=== PATIENT | male | born 1980 | race Caucasian/White ===

== ENCOUNTER 2016-04-13 15:55 | Emergency (ER) | payer BC ==
--- NOTE | 2016-04-13 19:49 | ED NURSING NOTES ---
Clinical Report - Nurses [facility] [address] [place] [address] 04/13/2016 15:58 Patient: YIMI BHAT TRIAGE Triage time 17:10. Acuity: LEVEL 3. Chief Complaint: SORE THROAT and (swelling post tonsillectomy). 17:20 04/13/16. Alert. No acute distress. SEPSIS SCREEN: Sepsis Screen. Negative (no infection suspected/documented). Heart rate greater than 90. Respiratory rate not greater than 20. CHEY COMA SCORE: Chey Coma Scale: 15- eyes open spontaneously (4); best verbal response- oriented x 4 (5); best motor response- obeys commands (6). --17:20 Kenny Conn R.N. 17:12 04/13/16. BP: 118/81. HR: 125. RR: 16. O2 saturation: 99% on room air. Temp: 99 F (oral). Pain level now 5/10. --17:20 Kenny Conn R.N. Triage time 17:38. Chief Complaint: SORE THROAT and (tonsils removed am, still having pain and throat swelling. "When dtries to swallow, the water comes back up throuigh the nares."). --17:44 Amarilis Santana R.N. Weight: 99.7 kg stated. Height/Length: 72 inches Per Patient. BMI: 29.8. --17:14 Kenny Conn R.N. Medications Fluticasone Propionate Nasal. --17:17 Kenny Conn R.N. Sertraline HCl Oral 25 mg, daily. --17:18 Amarilis Santana R.N. Ranitidine HCl Oral 150 mg, 2x a day. --17:18 Amarilis Santana R.N. ALPRAZolam Oral 0.5 mg, 2x a day. --17:18 Amarilis Santana R.N. OxyCODONE HCl Oral 5 mg, as needed. --17:18 Amarilis Santana R.N. Acetaminophen Oral. --17:18 Kenny Conn R.N. The following entry was struck and corrected by Amarilis Santana R.N., 17:43 (04/13/16) Reason for correction - other(correction). <<STRICKEN ENTRY-- Sertraline HCl Oral. --17:18 Kenny Conn R.N. --END STRIKE>> The following entry was struck and corrected by Amarilis Santana R.N., 17:43 (04/13/16) Reason for correction - other(correction). <<STRICKEN ENTRY-- Ranitidine HCl Oral. --17:18 Kenny Conn R.N. --END STRIKE>> The following entry was struck and corrected by Amarilis Santana R.N., 17:43 (04/13/16) Reason for correction - other(correction). <<STRICKEN ENTRY-- OxyCODONE HCl Oral. --17:18 Kenny Conn R.N. --END STRIKE>> The following entry was struck and corrected by Amarilis Santana R.N., 17:42 (04/13/16) Reason for correction - other(correction). <<STRICKEN ENTRY-- ALPRAZolam Oral. --17:18 Kenny Conn R.N. --END STRIKE>>. Allergies Hydrocodone. --17:18 Kenny Conn R.N. Medication/allergy information source: the patient. --17:20 Kenny Conn R.N. History Historian: patient. Primary physician (blaze). ( tonsillectomy , hasn't been able to swallow or intake liquids/food since yesterday. C/O increased swelling and pain when attempting to swallow. No airway compromise. States he has only been able to crush up 1 percocet in pudding to swallow.). This started yesterday. Treatment WHOLESALER: Applied ice. (percocet). SOCIAL HX: Former smoker, end date 2013. Occasional alcohol use. No drug use. ABUSE ASSESSMENT: Abuse assessment: The patient was asked "Do you feel safe in your home?". No report of abuse. FALL RISK ASSESSMENT: Fall risk assessment completed. No fall risk identified. NUTRITIONAL RISK ASSESSMENT: The nutritional risk assessment revealed no deficiencies. FUNCTIONAL ASSESSMENT: Functional assessment: no impairments noted. LEARNING NEEDS ASSESSMENT: The learning needs assessment revealed no barriers. SKIN INTEGRITY ASSESSMENT: Skin integrity risk assessment completed. No skin integrity risk identified. --17:20 Kenny Conn R.N. Arrived by private vehicle. Historian: patient and family. Accompanied by family. Primary physician (blaze). This started yesterday. Onset. (started to get sore, then get worse.). ( "Feels like someone squeezing the throat."). Treatment WHOLESALER: (1/2 percocet in applesauce 2 hrs ago.). --17:44 Amarilis Santana R.N. PROBLEMS: Gastroesophageal Reflux Disease. Seasonal allergies. Anxiety Reaction. --17:19 Kenny Conn R.N. ADDITIONAL SURGERIES: Tonsillectomy. Vasectomy. --17:19 Kenny Conn R.N. Interventions ID band on patient. To treatment room. --17:20 Kenny Conn R.N. To waiting room. --17:20 Kenny Conn R.N. PHYSICAL ASSESSMENT Ambulatory to room. Patient gowned. GENERAL / NEURO / PSYCH: Alert. Oriented X 4. Appears in pain and anxious. HEENT: Trouble handling secretions. Muffled voice. Mucous membranes are pink. RESPIRATORY: Respirations not labored. CVS: Capillary refill less than 2 seconds. SKIN: Skin is warm and dry. Normal skin turgor. --17:45 Amarilis Santana R.N. NURSING PROGRESS NOTES Oxygen administered. Patient gowned. Head of bed elevated. Two patient identifiers checked. Call light placed in reach. Side rails up x 2. Bed placed in lowest position. Brakes of bed on. Patient ready for evaluation. --17:45 Amarilis Santana R.N. 18:20 04/13/2016 Site #1 started via IV in the right antecubital space with an 20g angiocath, with aseptic technique and good blood return; one attempt. Saline lock flushed with saline. --18:35 Amarilis Santana R.N. 18:20 04/13/2016 Started bag #1 1000 mL IV Fluids IV NS (Saline); at 1000 mL/hr over 1 hour(s) via site #1 via IV pump. Allergies verified and confirmed 5 rights. IV patency established. IV site checked: no pain, redness, or swelling. IV flushed thoroughly pre- and post-medication administration. --18:35 Amarilis Santana R.N. 18:21 04/13/2016 Zofran (Ondansetron HCl) IVP 4 mg given. via site #1. Allergies verified and confirmed 5 rights. IV patency established. IV site checked: no pain, redness, or swelling. IV flushed thoroughly pre- and post-medication administration. IVP given by RN. --18:36 Amarilis Santana R.N. 18:27 04/13/2016 Dilaudid (HYDROmorphone HCl PF) IVP 0.5 mg given over 1 minute(s) via site #1. Allergies verified, confirmed 5 rights and sedative warning given to the patient. IV patency established. IV site checked: no pain, redness, or swelling. IV flushed thoroughly pre- and post-medication administration. IVP given by RN. --18:37 Amarilis Santana R.N. 18:35 04/13/2016 Decadron IVP 10 mg given over 1 minute(s) via site #1. Allergies verified and confirmed 5 rights. IV patency established. IV site checked: no pain, redness, or swelling. IV flushed thoroughly pre- and post-medication administration. IVP given by RN. --18:39 Amarilis Santana R.N. 20:04/13/2016 Zofran IVP Response: no adverse reaction symptoms have improved the patient feels better. --20:09 Alfredo Saavedra R.N. 20:04/13/2016 Dilaudid IVP Response: no adverse reaction symptoms have improved the patient feels better. --20:09 Alfredo Saavedra R.N. 20:04/13/2016 Decadron IVP Response: no adverse reaction symptoms have improved the patient feels better. --20:09 Alfredo Saavedra R.N. 20:09 04/13/2016 IV Fluids IV NS Discontinued: bag #1 completed upon discharge. Total amount infused: 1000 mL. IV patency established. IV site checked: no pain, redness, or swelling. IV flushed thoroughly. --20:09 Alfredo Saavedra R.N. DISPOSITION / DISCHARGE Departure time: 20:08. Condition at departure: stable. The goals identified in the patient's plan of care were met. No learning barriers present. Discharge instructions provided and reviewed with the patient. Reviewed medication(s) side effects, precautions, dosing and course information. Prescription(s) given to the patient (Yimi verbalizes importance of not driving and/or operating heavy machinery while taking prescribed narcotics. He verbalizes safe, proper use of prescribed med for optimal pain management at home.). Patient verbalized understanding. Written instructions provided in Canadian. ( Yimi verbalizes understanding of all d/c instructions including need for f/u with ENT. He has no questions and voices no concerns at this time.). The patient was discharged by the physician. He was discharged home and accompanied by spouse. He left the Emergency Department ambulatory and via private vehicle. Spouse driving. CHEY COMA SCORE: Grant Coma Scale: 15- eyes open spontaneously (4); best verbal response- oriented x 4 (5); best motor response- obeys commands (6). --20:08 Alfredo Saavedra R.N. 20:05 04/13/16. BP: 124/79 (regular adult cuff) taken on the left arm, via an automated monitor, while lying. HR: 100 (normal rate). RR: 16 (regular, unlabored and normal). O2 saturation: 97% on room air. Temp: 99.4 F (oral). Pain level now: 05/10. --20:08 Alfredo Saavedra R.N. 20:08 04/13/2016 Site #1 removed upon discharge. Catheter intact. Bandaid applied (Bleeding controlled.). --20:08 Alfredo Saavedra R.N. Locked/Released at 04/13/2016 20:09 by Alfredo Saavedra R.N.
--- NOTE | 2016-04-13 19:49 | ED ORDER SUMMARY ---
..... Patient: YIMI BHAT OrderSheet [facility] VisitID: [id number] [address] [place] [address] 36y, M Registration Date/Time: 04/13/2016 ORDER SHEET Weight: 99.7 kg (stated) Allergies: Hydrocodone GENERAL ORDERS: MEDICATION ORDERS: IV FLUIDS: IV NS : initial bolus none -, then 1000 mL/hr for 1h (NOW); Urgent (17:49 04/13/2016 Arnold CHAVES) (Ack 18:04 SRoberts R.N.) (18:35 SRoberts R.N.) Decadron IV 10 mg (NOW) (17:53 04/13/2016 Arnold CHAVES) (Ack 18:04 SRoberts R.N.) (18:39 SRoberts R.N.) Dilaudid IV 0.5 mg (HIGH ALERT MEDICATION) (17:53 04/13/2016 Arnold CHAVES) (Ack 18:04 SRoberts R.N.) (18:37 SRoberts R.N.) Zofran IV 4 mg (NOW) (17:53 04/13/2016 Arnold CHAVES) (Ack 18:04 SRoberts R.N.) (18:36 SRoberts R.N.) ORDER SHEET NOTES: [Electronically signed by Alfredo Saavedra R.N. (20:09 04/13/2016)] [Electronically signed by Griffin Salinas MD (14:46 04/15/2016)] [Electronically locked/signed by Alfredo Saavedra R.N. (20:09 04/13/2016)]
--- NOTE | 2016-04-13 19:49 | ED CLINICAL REPORT ---
Clinical Report - Physicians/Mid Levels [facility] [address] [place] [address] 04/13/2016 15:58 Patient: YIMI BHAT Time Seen: 17:23. Arrived- By private vehicle. Historian- patient. HISTORY OF PRESENT ILLNESS Chief Complaint: CAN'T SWOLLOW and SP TONSILLECTOMY. This started yesterday Yimi is POD 2 following a tonsillectomy. He cannot drink fluids nor take his pain tablets. and is still present. It has been constant. (to severe). Pain described as moderate. The patient has had a sore throat. No toothache, swollen jaw or face, jaw pain or facial pain. Similar symptoms previously: None. Recent medical care: The patient was seen recently at another facility and hospitalized. ( For tonsillectomy - Dr Castillo). REVIEW OF SYSTEMS No fever, cough, difficulty breathing, chest pain or abdominal pain. PAST HISTORY Janae Kaur. Ops: TA Illness: none. Medications: Acetaminophen Oral. OxyCODONE HCl Oral 5 mg, as needed. ALPRAZolam Oral 0.5 mg, 2x a day. Ranitidine HCl Oral 150 mg, 2x a day. Sertraline HCl Oral 25 mg, daily. Fluticasone Propionate Nasal. Allergies: Hydrocodone. SOCIAL HISTORY The patient lives with spouse. ADDITIONAL NOTES The nursing notes have been reviewed. PHYSICAL EXAM Vital Signs: 04/13/2016 20:05 BP: 124/79. HR: 100. RR: 16. O2 saturation: 97%. Temp: 99.4 F. Pain level now: 05/10. 04/13/2016 17:12 BP: 118/81. HR: 125. RR: 16. O2 saturation: 99%. Temp: 99 F. Appearance: Alert. Patient in moderate distress. Head: Normal external inspection. ENT: (Healing tonsil beds without undue swelling). Neck: (No deep space masses). CVS: Heart sounds normal. Respiratory: Breath sounds normal. Abdomen: Nontender. PROGRESS AND PROCEDURES Course of Care: Pt is given 1 L of NS and Dilaudid plus Zofran plus Decatron. He feels better. Disposition: Discharged. Condition: improved. CLINICAL IMPRESSION SP TONSILLECTOMY. INSTRUCTIONS (LOTS OF LIQUIDS LIQUID PAIN MEDICATION WE GAVE YOU DECADRON A STEROID WE GAVE YOU ONE LITER OF SALINE CALL YOUR ENT DR ON FRIDAY FOR A PROGRESS REPORT RECHECK TOMORROW IF STILL NOT ABLE TO SWALLOW MEDS AND FLUIDS.). Prescription Medications: OXYCODONE LIQUID 5 MG/5 ML # 10 DOSES 5 ML Q 4 HRS PRN PAIN IF THERE IS A FORMULATION WITH 325 MG OF ACETAMENOPHEN PER 5 ML IN ADDITION TO THE OXYCODONE, THAT YOU BE PREFERABLE. Understanding of the discharge instructions verbalized by patient and family. (Electronically signed by Griffin Salinas MD 04/15/2016 14:46)
--- NOTE | 2016-04-13 19:49 | ED ORDER SUMMARY ---
..... Patient: YIMI BHAT OrderSheet [facility] VisitID: [id number] [address] [place] [address] 36y, M Registration Date/Time: 04/13/2016 ORDER SHEET Weight: 99.7 kg (stated) Allergies: Hydrocodone GENERAL ORDERS: MEDICATION ORDERS: IV FLUIDS: IV NS : initial bolus none -, then 1000 mL/hr for 1h (NOW); Urgent (17:49 04/13/2016 Arnold CHAVES) (Ack 18:04 SRoberts R.N.) (18:35 SRoberts R.N.) Decadron IV 10 mg (NOW) (17:53 04/13/2016 Arnold CHAVES) (Ack 18:04 SRoberts R.N.) (18:39 SRoberts R.N.) Dilaudid IV 0.5 mg (HIGH ALERT MEDICATION) (17:53 04/13/2016 Arnold CHAVES) (Ack 18:04 SRoberts R.N.) (18:37 SRoberts R.N.) Zofran IV 4 mg (NOW) (17:53 04/13/2016 Arnold CHAVES) (Ack 18:04 SRoberts R.N.) (18:36 SRoberts R.N.) ORDER SHEET NOTES: [Electronically signed by Alfredo Saavedra R.N. (20:09 04/13/2016)] [Electronically signed by Griffin Salinas MD (14:46 04/15/2016)] [Electronically locked/signed by Alfredo Saavedra R.N. (20:09 04/13/2016)]
--- NOTE | 2016-04-13 19:49 | ED CLINICAL REPORT ---
Clinical Report - Physicians/Mid Levels [facility] [address] [address] 04/13/2016 15:58 Patient: YIMI BHAT Time Seen: 17:23. Arrived- By private vehicle. Historian- patient. HISTORY OF PRESENT ILLNESS Chief Complaint: CAN'T SWOLLOW and SP TONSILLECTOMY. This started yesterday Yimi is POD 2 following a tonsillectomy. He cannot drink fluids nor take his pain tablets. and is still present. It has been constant. (to severe). Pain described as moderate. The patient has had a sore throat. No toothache, swollen jaw or face, jaw pain or facial pain. Similar symptoms previously: None. Recent medical care: The patient was seen recently at another facility and hospitalized. ( For tonsillectomy - Dr Castillo). REVIEW OF SYSTEMS No fever, cough, difficulty breathing, chest pain or abdominal pain. PAST HISTORY Janae Kaur. Ops: TA Illness: none. Medications: Acetaminophen Oral. OxyCODONE HCl Oral 5 mg, as needed. ALPRAZolam Oral 0.5 mg, 2x a day. Ranitidine HCl Oral 150 mg, 2x a day. Sertraline HCl Oral 25 mg, daily. Fluticasone Propionate Nasal. Allergies: Hydrocodone. SOCIAL HISTORY The patient lives with spouse. ADDITIONAL NOTES The nursing notes have been reviewed. PHYSICAL EXAM Vital Signs: 04/13/2016 20:05 BP: 124/79. HR: 100. RR: 16. O2 saturation: 97%. Temp: 99.4 F. Pain level now: 05/10. 04/13/2016 17:12 BP: 118/81. HR: 125. RR: 16. O2 saturation: 99%. Temp: 99 F. Appearance: Alert. Patient in moderate distress. Head: Normal external inspection. ENT: (Healing tonsil beds without undue swelling). Neck: (No deep space masses). CVS: Heart sounds normal. Respiratory: Breath sounds normal. Abdomen: Nontender. PROGRESS AND PROCEDURES Course of Care: Pt is given 1 L of NS and Dilaudid plus Zofran plus Decatron. He feels better. Disposition: Discharged. Condition: improved. CLINICAL IMPRESSION SP TONSILLECTOMY. INSTRUCTIONS (LOTS OF LIQUIDS LIQUID PAIN MEDICATION WE GAVE YOU DECADRON A STEROID WE GAVE YOU ONE LITER OF SALINE CALL YOUR ENT DR ON FRIDAY FOR A PROGRESS REPORT RECHECK TOMORROW IF STILL NOT ABLE TO SWALLOW MEDS AND FLUIDS.). Prescription Medications: OXYCODONE LIQUID 5 MG/5 ML # 10 DOSES 5 ML Q 4 HRS PRN PAIN IF THERE IS A FORMULATION WITH 325 MG OF ACETAMENOPHEN PER 5 ML IN ADDITION TO THE OXYCODONE, THAT YOU BE PREFERABLE. Understanding of the discharge instructions verbalized by patient and family. (Electronically signed by Griffin Salinas MD 04/15/2016 14:46)
--- NOTE | 2016-04-15 14:46 | ED MAR SUMMARY ---
..... Medication Administration Record [facility] [address] [place] [address] Patient: YIMI BHAT Visit ID: [id number] 36y, M Weight: 99.7 kg Height/Length: 72 in BMI: 29.8 ALLERGIES: Hydrocodone Start 18:20 04/13/2016 Amarilis Santana R.N., Stop 20:09 04/13/2016 Alfredo Saavedra R.N. Medication Administered: IV NS (SALINE), Dose: IV Fluids over 1 hour(s), Rate: 1000 mL/hr, Dispensed: 1000 mL bag, Site: #1 right AC. Medication Ordered: IV NS : initial bolus none -, then 1000 mL/hr for 1h (NOW); Urgent. Given 18:21 04/13/2016 Amarilis Santana R.N. Medication Administered: ZOFRAN [IVP] (ONDANSETRON HCL), Dose: 4 mg IVP, Site: #1 right AC. Medication Ordered: Zofran IV 4 mg (NOW). Given 18:27 04/13/2016 Amarilis Santana R.N. Medication Administered: DILAUDID [IVP] (HYDROMORPHONE HCL PF), Dose: 0.5 mg IVP over 1 minute(s), Site: #1 right AC. Medication Ordered: Dilaudid IV 0.5 mg (HIGH ALERT MEDICATION). Given 18:35 04/13/2016 Amarilis Santana R.N. Medication Administered: DECADRON [IVP], Dose: 10 mg IVP over 1 minute(s), Site: #1 right AC. Medication Ordered: Decadron IV 10 mg (NOW).
--- NOTE | 2016-04-15 14:46 | ED MED RECONCILIATION SUMMARY ---
Patient: YIMI BHAT Medication Reconciliation Report [facility] VisitID: [id number] [address] [place] [address] 36y, M Registration Date/Time: 04/13/2016 Weight: 99.7 kg Height/Length: 72 in. BMI: 29.8 ALLERGIES: Hydrocodone The patient's Home Medications are listed below: THE FOLLOWING MEDICATIONS NEED TO BE RECONCILED: Acetaminophen Oral ALPRAZolam Oral 0.5 mg, 2x a day Fluticasone Propionate Nasal OxyCODONE HCl Oral 5 mg Ranitidine HCl Oral 150 mg, 2x a day Sertraline HCl Oral 25 mg, daily The source(s) of the original Home Medication information: patient The following Medications were given to the patient in the Emergency Department: IV NS IV Fluids bolus 0, then 1000 mL/hr, administered: 04/13/2016 6:20:00 PM Zofran [IVP] IVP 4 mg, administered: 04/13/2016 6:21:00 PM Dilaudid [IVP] IVP 0.5 mg, administered: 04/13/2016 6:27:00 PM Decadron [IVP] IVP 10 mg, administered: 04/13/2016 6:35:00 PM The following Medications were prescribed to the patient: OXYCODONE LIQUID 5 MG/5 ML # 10 DOSES 5 ML Q 4 HRS PRN PAINIF THERE IS A FORMULATION WITH 325 MG OF ACETAMENOPHEN PER 5 ML IN ADDITION TO THE OXYCODONE, THAT YOU BE PREFERABLE. -- Griffin Salinas MD
--- NOTE | 2016-04-15 14:46 | ED DISCHARGE INSTRUCTIONS ---
Patient: YIMI BHAT General Instructions [facility] VisitID: [id number] [address] [place] [address] 36y, M Registration Date/Time: 04/13/2016 SP TONSILLECTOMY. INSTRUCTIONS (LOTS OF LIQUIDS LIQUID PAIN MEDICATION WE GAVE YOU DECADRON A STEROID WE GAVE YOU ONE LITER OF SALINE CALL YOUR ENT DR ON FRIDAY FOR A PROGRESS REPORT RECHECK TOMORROW IF STILL NOT ABLE TO SWALLOW MEDS AND FLUIDS.). Prescription Medications: OXYCODONE LIQUID 5 MG/5 ML # 10 DOSES 5 ML Q 4 HRS PRN PAIN IF THERE IS A FORMULATION WITH 325 MG OF ACETAMENOPHEN PER 5 ML IN ADDITION TO THE OXYCODONE, THAT YOU BE PREFERABLE. Understanding of the discharge instructions verbalized by patient and family. (Electronically signed by Griffin Salinas MD 04/15/2016 14:46)
--- NOTE | 2016-04-15 14:46 | ED MAR SUMMARY ---
..... Medication Administration Record [facility] [address] [place] [address] Patient: YIMI BHAT Visit ID: [id number] 36y, M Weight: 99.7 kg Height/Length: 72 in BMI: 29.8 ALLERGIES: Hydrocodone Start 18:20 04/13/2016 Amarilis Santana R.N., Stop 20:09 04/13/2016 Alfredo Saavedra R.N. Medication Administered: IV NS (SALINE), Dose: IV Fluids over 1 hour(s), Rate: 1000 mL/hr, Dispensed: 1000 mL bag, Site: #1 right AC. Medication Ordered: IV NS : initial bolus none -, then 1000 mL/hr for 1h (NOW); Urgent. Given 18:21 04/13/2016 Amarilis Santana R.N. Medication Administered: ZOFRAN [IVP] (ONDANSETRON HCL), Dose: 4 mg IVP, Site: #1 right AC. Medication Ordered: Zofran IV 4 mg (NOW). Given 18:27 04/13/2016 Amarilis Santana R.N. Medication Administered: DILAUDID [IVP] (HYDROMORPHONE HCL PF), Dose: 0.5 mg IVP over 1 minute(s), Site: #1 right AC. Medication Ordered: Dilaudid IV 0.5 mg (HIGH ALERT MEDICATION). Given 18:35 04/13/2016 Amarilis Santana R.N. Medication Administered: DECADRON [IVP], Dose: 10 mg IVP over 1 minute(s), Site: #1 right AC. Medication Ordered: Decadron IV 10 mg (NOW).
--- NOTE | 2016-04-15 14:46 | ED DISCHARGE INSTRUCTIONS ---
Patient: YIMI BHAT General Instructions [facility] VisitID: [id number] [address] [place] [address] 36y, M Registration Date/Time: 04/13/2016 SP TONSILLECTOMY. INSTRUCTIONS (LOTS OF LIQUIDS LIQUID PAIN MEDICATION WE GAVE YOU DECADRON A STEROID WE GAVE YOU ONE LITER OF SALINE CALL YOUR ENT DR ON FRIDAY FOR A PROGRESS REPORT RECHECK TOMORROW IF STILL NOT ABLE TO SWALLOW MEDS AND FLUIDS.). Prescription Medications: OXYCODONE LIQUID 5 MG/5 ML # 10 DOSES 5 ML Q 4 HRS PRN PAIN IF THERE IS A FORMULATION WITH 325 MG OF ACETAMENOPHEN PER 5 ML IN ADDITION TO THE OXYCODONE, THAT YOU BE PREFERABLE. Understanding of the discharge instructions verbalized by patient and family. (Electronically signed by Griffin Salinas MD 04/15/2016 14:46)
--- NOTE | 2016-04-15 14:46 | ED MED RECONCILIATION SUMMARY ---
Patient: YIMI BHAT Medication Reconciliation Report [facility] VisitID: [id number] [address] [place] [address] 36y, M Registration Date/Time: 04/13/2016 Weight: 99.7 kg Height/Length: 72 in. BMI: 29.8 ALLERGIES: Hydrocodone The patient's Home Medications are listed below: THE FOLLOWING MEDICATIONS NEED TO BE RECONCILED: Acetaminophen Oral ALPRAZolam Oral 0.5 mg, 2x a day Fluticasone Propionate Nasal OxyCODONE HCl Oral 5 mg Ranitidine HCl Oral 150 mg, 2x a day Sertraline HCl Oral 25 mg, daily The source(s) of the original Home Medication information: patient The following Medications were given to the patient in the Emergency Department: IV NS IV Fluids bolus 0, then 1000 mL/hr, administered: 04/13/2016 6:20:00 PM Zofran [IVP] IVP 4 mg, administered: 04/13/2016 6:21:00 PM Dilaudid [IVP] IVP 0.5 mg, administered: 04/13/2016 6:27:00 PM Decadron [IVP] IVP 10 mg, administered: 04/13/2016 6:35:00 PM The following Medications were prescribed to the patient: OXYCODONE LIQUID 5 MG/5 ML # 10 DOSES 5 ML Q 4 HRS PRN PAINIF THERE IS A FORMULATION WITH 325 MG OF ACETAMENOPHEN PER 5 ML IN ADDITION TO THE OXYCODONE, THAT YOU BE PREFERABLE. -- Griffin Salinas MD
== END 2016-04-13 22:08 | disposition home or self-care (01) ==
LOC: ED SRH 15:55
DX: G89.18 Other acute postprocedural pain (principal); J02.9 Acute pharyngitis, unspecified; R13.19 Other dysphagia; Z88.5 Allergy status to narcotic agent; Z79.891 Long term (current) use of opiate analgesic; Z79.2 Long term (current) use of antibiotics